=== PATIENT | female | born 1985 | race Two or more races ===

== ENCOUNTER 2023-10-20 07:12 | Inpatient (IN) | payer OTHER ==
[~2023-10-20] VITALS: Ht 160 cm; Wt 88.0 kg
[2023-10-20 08:00] VITALS: PULSE 102; RESP 25; O2SAT 95
[2023-10-20 08:11] LABS: Basophils # (auto) 0.1 10 ^3/uL (0-0.2); Basophils % (auto) 0.4 % (0.0-2.0); Eosinophils # (auto) 0 10 ^3/uL (0-0.8); Eosinophils % (auto) 0.3 % (0.0-7.0); Hematocrit 52.4 % (36.0-46.0); Hemoglobin 17.3 g/dL (12.2-16.2); Lymphocytes # (auto) 1.1 10 ^3/uL (0.4-5.4); Lymphocytes % (auto) 6.2 % (10.0-50.0); Mean Corpuscular Hemoglobin 30.1 pg (28.0-32.0); Monocytes # (auto) 0.8 10 ^3/uL (0-1.3); Monocytes % (auto) 4.6 % (0.0-12.0); Neutrophils # (auto) 15.4 10 ^3/uL (1.6-8.6); Neutrophils % (auto) 88.5 % (37.0-80.0); Nucleated Red Blood Cells % 0.1 %; Red Blood Cells 5.76 10^6/uL (4.0-5.20); Red Cell Distribution Width 14.4 % (11.8-14.3); White Blood Cell 17.4 10^3/uL (4.4-10.8)
[2023-10-20 08:42] LABS: Alanine Aminotransferase 48 U/L (7-40); Albumin 4.9 g/dL (3.2-4.8); Alkaline Phosphatase 125 U/L (46-116); Anion Gap 14 (5-15); Aspartate Aminotransferase 32 U/L (13-40); BUN/Creatinine Ratio 11.4 (10.0-20.0); Blood Urea Nitrogen 10 mg/dL (9-23); Calcium 9.8 mg/dL (8.5-10.1); Carbon Dioxide 21 mmol/L (20-30); Chloride 103 mmol/L (98-107); Glucose 133 mg/dL (74-106); Potassium 4.1 mmol/L (3.5-5.1); Sodium 138 mmol/L (136-145)
[2023-10-20 08:43] LABS: Bilirubin, Total 1.4 mg/dL (0.2-1.0); Total Protein 7.6 g/dL (5.7-8.2)
[2023-10-20] MEDS ORDERED: KETOROLAC TROMETH 30 MG/ML 1ML VIAL IV ONE (08:45)
[2023-10-20 09:15] LABS: Magnesium 1.9 mg/dL (1.6-2.6)
[2023-10-20] MEDS ORDERED: IOHEXOL 300 MG/ML 100ML BOTTLE IJ ONE ×2 (09:24→10:30)
[2023-10-20] MEDS ORDERED: levoFLOXacin 750MG 150 ML IV ONE (11:15)
[2023-10-20] MEDS ORDERED: VANCOMYCIN 1GM/200ML 200 ML IV ONE (11:30)
[2023-10-20 12:18] LABS: COVID19 ANTIGEN SOFIA FIA NEGATIVE (NEGATIVE)
[2023-10-20] MEDS ORDERED: diphenhdrAMINE HCL 50 MG/1 ML VL ONE (12:34)
[2023-10-20] MEDS ORDERED: diphenhdrAMINE HCL 50 MG/1 ML VL IV ONE (12:45)
[2023-10-20] MEDS ORDERED: ALBU2TAB11 NEB (13:11)
[2023-10-20] MEDS ORDERED: AMLO1TAB22 PO (13:12)
[2023-10-20] MEDS ORDERED: MORPHINE SULFATE INJ 2 MG/ml SYRG IV PRN (13:15)
[2023-10-20] MEDS ORDERED: ONDANSETRON HCL 4 MG/2 ML VIAL IV PRN (13:15)
[2023-10-20] MEDS ORDERED: DOCUSATE SOD 100 MG CAP PO PRN (13:15)
[2023-10-20] MEDS ORDERED: VANCOMYCIN PER PHARMACY 0 MG IV SCH (13:15)
[2023-10-20] MEDS ORDERED: ENOXAPARIN SOD 40 MG/0.4 ML SYRINGE SC SCH (13:15)
[2023-10-20] MEDS ORDERED: METF-370 PO (13:23)
[2023-10-20] MEDS ORDERED: FURO40TA4 PO (13:23)
[2023-10-20] MEDS ORDERED: SELE IV (13:23)
[2023-10-20] MEDS ORDERED: SELE PO (13:23)
[2023-10-20] MEDS ORDERED: LISI-275 PO (13:23)
[2023-10-20] MEDS ORDERED: MOME1AER8 INH (13:23)
[2023-10-20] MEDS ORDERED: MACI1TAB2 PO (13:23)
[2023-10-20] MEDS ORDERED: POTA10TA51 PO (13:23)
[2023-10-20] MEDS ORDERED: TADA5TAB11 PO (13:23)
[2023-10-20] MEDS ORDERED: CHOL200039 PO (13:23)
[2023-10-20] MEDS ORDERED: BICT1TAB PO (13:23)
[2023-10-20] MEDS ORDERED: IPRATROPIUM BROM 0.5 MG/2.5ML INH SOL NEB PRN (13:45)
[2023-10-20] MEDS ORDERED: FUROSEMIDE 100 MG/10ML VIAL IV ONE (13:45)
[2023-10-20] MEDS ORDERED: ALBUTEROL SULF 2.5 MG/0.5ML(0.5%) NEB SOLN NEB PRN (13:45)
[2023-10-20] MEDS: CEFEPIME 2GM/50ML NS 50 ML IV SCH ×2 (14:48→23:26)
[2023-10-20 15:53] VITALS: BP 129/83; PULSE 98; RESP 18; TEMP 98; O2SAT 94
[2023-10-20 17:00] VITALS: BP 133/89; PULSE 97; RESP 18; TEMP 97.7; O2SAT 98
[2023-10-20] MEDS: VANCOMYCIN 1GM/200ML 200 ML IV SCH (19:43)
[2023-10-20 20:00] VITALS: BP 125/92; PULSE 80; PULSE 82; RESP 71; TEMP 36.5
[2023-10-20 22:00] VITALS: BP 115/68; PULSE 80; RESP 17; TEMP 96.7; O2SAT 94
[2023-10-20] MEDS ORDERED: MOMETASONE FUROATE FORMOTEROL IN SCH (22:00)
[2023-10-20] MEDS ORDERED: SELEXIPAG PO SCH (22:00)
[2023-10-21 01:00] VITALS: O2SAT 94
[2023-10-21 01:26] VITALS: BP 115/68; PULSE 80; RESP 17; TEMP 96.7; O2SAT 94
[2023-10-21 05:00] VITALS: BP 123/76; PULSE 89; RESP 18; TEMP 97.4; O2SAT 94
[2023-10-21] MEDS: VANCOMYCIN 1GM/200ML 200 ML IV SCH (05:31)
[2023-10-21] MEDS: CEFEPIME 2GM/50ML NS 50 ML IV SCH (05:34)
[2023-10-21 08:00] VITALS: PULSE 97; RESP 17
[2023-10-21 09:00] VITALS: BP 117/81; PULSE 97; RESP 17; TEMP 97.6; O2SAT 91
[2023-10-21] MEDS ORDERED: amLODIPine BESYLATE 5 MG TAB PO SCH (10:00)
[2023-10-21] MEDS ORDERED: MACITENTAN 10 MG PO SCH (10:00)
[2023-10-21] MEDS ORDERED: FUROSEMIDE 100 MG/10ML VIAL IV SCH (10:00)
[2023-10-21] MEDS ORDERED: LISINOPRIL 5 MG TAB PO SCH (10:00)
[2023-10-21] MEDS ORDERED: FUROSEMIDE 20 MG/2 ML VIAL IV SCH ×2 (10:00)
[2023-10-21] MEDS ORDERED: CHOLECALCIFEROL (VITD3) 2,000 UNIT CAP/TAB PO SCH (10:00)
[2023-10-21] MEDS ORDERED: TADALAFIL 40 MG PO SCH (10:00)
[2023-10-21] MEDS ORDERED: Bictegravir-Emtricitabine-Teno (Biktarvy 50-200-25 mg) TABLETS PO SCH (10:00)
[2023-10-23 08:06] LABS: % CD 4 Pos Lymph 30.4 % (30.8-58.5); CD4/CD8 Ratio 1.13 (0.92-3.72)
== END 2023-10-21 09:35 | disposition left against medical advice (07) | DRG 720 ==
LOC: ER 07:12 → TELE 13:22 → TELE-WESTW 15:41
PROVIDERS: ADMIT Nurse Practitioner Family; ATTEND Family Medicine
DX: A41.9 Sepsis, unspecified organism (principal); I50.33 Acute on chronic diastolic (congestive) heart failure; J15.69 Pneumonia due to other Gram-negative bacteria; K56.600 Partial intestinal obstruction, unspecified as to cause; I27.20 Pulmonary hypertension, unspecified; J15.9 Unspecified bacterial pneumonia; I11.0 Hypertensive heart disease with heart failure; E11.9 Type 2 diabetes mellitus without complications; F64.0 Transsexualism; Z20.822 Contact with and (suspected) exposure to COVID-19; Z53.29 Procedure and treatment not carried out because of patient's decision for other reasons; E66.9 Obesity, unspecified; Z68.34 Body mass index [BMI] 34.0-34.9, adult; Z79.899 Other long term (current) drug therapy; Z88.1 Allergy status to other antibiotic agents
CPT/HCPCS: 36415; 71045; 74177; 80053; 83605; 83690; 83735; 83880; 84484; 84702; 85025; 86360; 87040; 87426; 93005; 93306; 96365; 96367; 96368; 96372; 96375; G0378; J0692; J1885; J1956

== ENCOUNTER 2023-12-09 20:37 | Inpatient (IN) | payer OTHER ==
[~2023-12-09] VITALS: Ht 157.5 cm; Wt 77.0 kg
[~2023-12-09 20:37] MED LIST: ALBU2TAB11 NEB; AMLO1TAB22 PO; BICT1TAB PO; CHOL200039 PO; FURO40TA4 PO; LISI-275 PO; MACI1TAB2 PO; METF-370 PO; MOME1AER8 INH; POTA10TA51 PO; SELE PO; TADA5TAB11 PO
[2023-12-09] MEDS: IPRATROPIUM BROM 0.5 MG/2.5ML INH SOL NEB ONE (21:11)
[2023-12-09] MEDS: ALBUTEROL SULF 2.5 MG/0.5ML(0.5%) NEB SOLN NEB ONE (21:11)
[2023-12-09 21:52] LABS: Basophils # (auto) 0.1 10 ^3/uL (0-0.2); Basophils % (auto) 0.9 % (0.0-2.0); Eosinophils # (auto) 0.3 10 ^3/uL (0-0.8); Hematocrit 54.5 % (36.0-46.0); Hemoglobin 17.7 g/dL (12.2-16.2); Lymphocytes # (auto) 2.7 10 ^3/uL (0.4-5.4); Lymphocytes % (auto) 25.3 % (10.0-50.0); Mean Corpuscular Hemoglobin 29.6 pg (28.0-32.0); Mean Corpuscular Hgb Conc. 32.5 g/dL (32.0-36.0); Monocytes # (auto) 0.9 10 ^3/uL (0-1.3); Monocytes % (auto) 8.8 % (0.0-12.0); Neutrophils # (auto) 6.6 10 ^3/uL (1.6-8.6); Nucleated Red Blood Cells % 0.2 %; Red Blood Cells 5.99 10^6/uL (4.0-5.20); White Blood Cell 10.7 10^3/uL (4.4-10.8)
[2023-12-09] MEDS: ONDANSETRON HCL 4 MG/2 ML VIAL IV ONE (22:00)
[2023-12-09] MEDS: PROMETHAZINE-DM 5 ML ORAL SYRUP PO ONE (22:00)
[2023-12-09 22:10] LABS: Alanine Aminotransferase 44 U/L (7-40); Alkaline Phosphatase 93 U/L (46-116); Anion Gap 9 (5-15); Aspartate Aminotransferase 39 U/L (13-40); BUN/Creatinine Ratio 15.1 (10.0-20.0); Blood Urea Nitrogen 14 mg/dL (9-23); Calcium 8.9 mg/dL (8.7-10.4); Carbon Dioxide 23 mmol/L (20-30); Chloride 106 mmol/L (98-107); Glucose 106 mg/dL (74-106); Potassium 3.7 mmol/L (3.5-5.1); Sodium 138 mmol/L (136-145)
[2023-12-09 22:11] LABS: Albumin 4.7 g/dL (3.2-4.8); Bilirubin, Total 0.7 mg/dL (0.2-1.0); Total Protein 7.7 g/dL (5.7-8.2)
[2023-12-09 22:18] LABS: Blood Alcohol < 3.0 mg/dL (<10)
[2023-12-09] MEDS: IPRATROPIUM BROM 0.5 MG/2.5ML INH SOL HHN ONE (22:20)
[2023-12-09] MEDS: ALBUTEROL SULF 2.5 MG/0.5ML(0.5%) NEB SOLN HHN ONE (22:20)
[2023-12-09 23:21] LABS: INR 0.94 (0.9-1.15); Partial Thromboplastin Time 30.5 SEC (24.5-34.5); Prothrombin Time 9.9 sec (9.3-11.8)
[2023-12-10 02:05] VITALS: TEMP 98.8
[2023-12-10] MEDS: methylPREDNISolone SOD SUCC 125 MG/2 ML VL IV ONE (03:14)
[2023-12-10] MEDS: cefTRIAXone 1GM/50ML D5W 50 ML IV ONE (03:14)
[2023-12-10] MEDS: ASPirin 81 mg TAB PO ONE (03:14)
[2023-12-10] MEDS: ACETAMINOPHEN 325 MG TAB PO ONE (03:14)
[2023-12-10] MEDS: AZITHROMYCIN 500MG/ 250ML 250 ML IV ONE (03:48)
[2023-12-10 04:03] LABS: COVID19 ANTIGEN SOFIA FIA NEGATIVE (NEGATIVE); Rapid Influenza A Negative (Negative); Rapid Influenza B Negative (Negative)
[2023-12-10] MEDS ORDERED: NITROGLYCERIN 0.4 MG SL TAB SL PRN ×2 (04:45→05:00)
[2023-12-10] MEDS ORDERED: HYDROcodone-ACET 5/325MG TAB PO PRN ×2 (04:45→05:00)
[2023-12-10] MEDS ORDERED: DEXTROSE (50%) 50ML SYRG IV PRN ×2 (04:45→05:00)
[2023-12-10] MEDS ORDERED: ONDANSETRON HCL 4 MG/2 ML VIAL IV PRN ×2 (04:45→05:00)
[2023-12-10] MEDS ORDERED: MORPHINE SULFATE INJ 2 MG/ml SYRG IV PRN ×2 (04:45→05:00)
[2023-12-10] MEDS ORDERED: ACETAMINOPHEN 325 MG TAB PO PRN ×2 (04:45→05:00)
[2023-12-10] MEDS ORDERED: IPRATROPIUM BROM 0.5 MG/2.5ML INH SOL NEB PRN ×2 (04:45→05:00)
[2023-12-10] MEDS ORDERED: TEMAZEPAM 15 MG CAP PO PRN ×2 (04:45→05:00)
[2023-12-10] MEDS ORDERED: ALBUTEROL SULF 2.5 MG/0.5ML(0.5%) NEB SOLN NEB PRN ×2 (04:45→05:00)
[2023-12-10] MEDS ORDERED: InsuLIN REG 1unit/0.01ml Soln (100units/ml) SC SCH (06:00)
[2023-12-10] MEDS ORDERED: FUROSEMIDE 40 MG TAB PO SCH (06:00)
[2023-12-10] MEDS ORDERED: ACCU-CHEK COMFORT CURVE STRIP VI SCH (06:00)
[2023-12-10 06:29] VITALS: BP 143/85; PULSE 100; RESP 18; O2SAT 94
[2023-12-10] MEDS: FUROSEMIDE 40 MG TAB PO SCH (06:30)
[2023-12-10] MEDS: InsuLIN REG 1unit/0.01ml Soln (100units/ml) SC SCH (06:31)
[2023-12-10] MEDS: ACCU-CHEK COMFORT CURVE STRIP VI SCH (06:32)
[2023-12-10] MEDS ORDERED: cefTRIAXone 1GM/50ML D5W 50 ML IV SCH (09:00)
[2023-12-10] MEDS ORDERED: amLODIPine BESYLATE 5 MG TAB PO SCH ×2 (10:00)
[2023-12-10] MEDS ORDERED: BIKTARVY PO SCH (10:00)
[2023-12-10] MEDS ORDERED: TADALAFIL 20 MG PO SCH (10:00)
[2023-12-10] MEDS ORDERED: AZITHROMYCIN 500MG/ 250ML 250 ML IV SCH (10:00)
[2023-12-11] MEDS ORDERED: cefTRIAXone 1GM/50ML D5W 50 ML IV SCH (03:00)
[2023-12-11] MEDS ORDERED: AZITHROMYCIN 500MG/ 250ML 250 ML IV SCH (04:00)
== END 2023-12-10 10:26 | disposition left against medical advice (07) | DRG 133 ==
LOC: ER 20:37 → TELE 12-10 04:37 → ER 12-10 04:37 → TELE 12-10 10:00
PROVIDERS: ADMIT Nurse Practitioner; ATTEND Nurse Practitioner
DX: J96.21 Acute and chronic respiratory failure with hypoxia (principal); I27.20 Pulmonary hypertension, unspecified; J18.9 Pneumonia, unspecified organism; J44.0 Chronic obstructive pulmonary disease with (acute) lower respiratory infection; I11.0 Hypertensive heart disease with heart failure; I50.9 Heart failure, unspecified; J45.901 Unspecified asthma with (acute) exacerbation; K56.7 Ileus, unspecified; F64.0 Transsexualism; Z21 Asymptomatic human immunodeficiency virus [HIV] infection status; E11.9 Type 2 diabetes mellitus without complications; Z91.148 Patient's other noncompliance with medication regimen for other reason; Z88.1 Allergy status to other antibiotic agents; Z20.822 Contact with and (suspected) exposure to COVID-19
CPT/HCPCS: 36415; 36600; 71045; 80053; 80320; 82805; 83605; 83735; 83880; 84484; 85025; 85610; 85730; 87040; 87426; 87804; 93005; 94640; 96365; 96368; 96375; G0378; J1815